=== PATIENT | female | born 1970 | race Caucasian/White ===

== ENCOUNTER 2025-03-07 08:40 | Outpatient (CLI) | payer BC, SELFPAY ==
--- NOTE | 2025-03-07 | EST_ITS ---
Patient Info Name: Noni Amezcua Age: 54 years : 1970 Gender: Female Ht: 68 in Wt: 140 lbs BSA: 1.74 m2 HR: 66 bpm BP: 134 / 89 mmHg Technical Quality: Excellent Exam Date: 03/07/2025 9:00 AM Patient Status: O Admit Date: 03/07/2025 Exam Type: CA stress echo Treadmill exercise stress echocardiogram is performed. 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 1. Negative Lonny exercise stress test for ischemic ST changes by ECG criteria. 2. 2. Reduced functional capacity, achieving 6.5 METs of workload. 3. 3. Appropriate HR response to exercise. 4. 4. Appropriate HR recovery at 1 minute post exercise. 5. 5. Negative stress echocardiogram for ischemia by wall motion analysis. 6. 6. Patient informed of the above results. Stress Echo Findings Left Ventricle Appropriate increase in LV endocardial thickening with systole. Appropriate augmentation of contractility with systole. No wall motion abnormality. Left Ventricle Normal LV systolic function, no wall motion abnormality. Protocol: Lonny Stress ECG Details Stage: REST Duration (min): 5 min : 55 sec Speed (mph): 0.0 Grade (%): 0 HR (bpm): 74 SBP (mmHg): 134 DBP (mmHg): 89 METS: --- Stage: RECOVERY Duration (min): 1 min : 56 sec Speed (mph): 0.0 Grade (%): 0 HR (bpm): 110 SBP (mmHg): 169 DBP (mmHg): 80 METS: --- Stage: STAGE 1 Duration (min): 2 min : 0 sec Speed (mph): 1.7 Grade (%): 10 HR (bpm): 134 SBP (mmHg): 134 DBP (mmHg): 89 METS: --- Stage: STAGE 1 Duration (min): 3 min : 0 sec Speed (mph): 1.7 Grade (%): 10 HR (bpm): 152 SBP (mmHg): 179 DBP (mmHg): 90 METS: --- Stage: RECOVERY Duration (min): 2 min : 56 sec Speed (mph): 0.0 Grade (%): 0 HR (bpm): 112 SBP (mmHg): 187 DBP (mmHg): 66 METS: --- Stage: RECOVERY Duration (min): 0 min : 56 sec Speed (mph): 0.0 Grade (%): 0 HR (bpm): 136 SBP (mmHg): 169 DBP (mmHg): 80 METS: --- Stage: RECOVERY Duration (min): 3 min : 56 sec Speed (mph): 0.0 Grade (%): 0 HR (bpm): 84 SBP (mmHg): 187 DBP (mmHg): 66 METS: --- Stage: RECOVERY Duration (min): 4 min : 27 sec Speed (mph): 0.0 Grade (%): 0 HR (bpm): 82 SBP (mmHg): 148 DBP (mmHg): 81 METS: --- Stage: STAGE 2 Duration (min): 1 min : 3 sec Speed (mph): 0.0 Grade (%): 0 HR (bpm): 163 SBP (mmHg): 179 DBP (mmHg): 90 METS: --- Stage: STAGE 1 Duration (min): 1 min : 0 sec Speed (mph): 1.7 Grade (%): 10 HR (bpm): 109 SBP (mmHg): 134 DBP (mmHg): 89 METS: --- Stage: REST Duration (min): 0 min : 22 sec Speed (mph): 0.0 Grade (%): 0 HR (bpm): 64 SBP (mmHg): --- DBP (mmHg): --- METS: --- Stage: STAGE 2 Duration (min): 1 min : 0 sec Speed (mph): 2.5 Grade (%): 12 HR (bpm): 162 SBP (mmHg): 179 DBP (mmHg): 90 METS: --- Rest HR: 74 bpm Peak HR: 163 bpm Rest Sys BP: 134 mmHg Peak Sys BP: 187 mmHg Max Pred HR: 166 bpm % Max Pred HR: 98 % Target HR: 141 bpm Max RPP: 30,481 bpm*mmHg Del Valle Score: -2 Termination Reason: Reached target heart rate or workload Cardiac Symptoms: Shortness of breath Max ST Seg Deviation: 1 mm Total Time: 4 min : 3 sec Rest Rivera BP: 89 mmHg Peak Rivera BP: 66 mmHg Angina Score: None Total METS: 6.5 Resting ECG Sinus rhythm. Stress ECG No ST changes. Arrhythmias None. Report Signatures Stress ECG Echo
--- OUTSIDE RECORDS SUMMARY | 2025-03-07 08:49 | XMS_ITS | Data Portability ---
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 All stable. Hx of breast cysts, and fam hx of breast cancer in her mother. Cologuard within 3 years UTD eye exam UTD Dental exam UTD pap smear 2023, last month. Not available 09/28/2023 18:28:56 09/27/2024 09/27/2024 Mammogram alternate with MRI 6 months later. All stable. Hx of breast cysts, and fam hx of breast cancer in her mother. Cologuard august 2024 clear. eye exam UTD Dental exam UTD pap smear august 2023. Not available 09/27/2024 16:58:59 Plan of Treatment Reminders Order Date Submit Date Provider Last Modified By Organization Details Last Modified Time Details Appointments ANY 15 2025 03:30P M MANUEL White Not available Not available Not available Lab TSH + free T4, serum 2024 025 [email or web address] [facility], [address], [place], [address], 09/27/2024 17:07:08 CMP, serum or plasma 2024 025 [id number] [facility], [address], [place], [address], 12/28/2024 03:09:17 CBC w/ auto diff 2024 025 [email or web address] [facility], [address], [place], [address], 09/27/2024 17:07:08 vitamin B12 + folate, serum or blood 2024 [email or web address], [address], [place], [address], 09/27/2024 17:07:08 lipid panel, serum 2024 025 [email or web address], [address], [place], [address], 09/27/2024 17:07:08 HbA1c (hemoglob in A1c), blood 2024 025 [email or web address], [address], [place], [address], 09/27/2024 17:07:08 TSH + free T4, serum 2023 024 HUNTER [facility], [address], [place], [address], 03/13/2024 09:06:20 CMP, serum or plasma 2023 024 HUNTER [facility], [address], [place], [address], 03/13/2024 09:06:21 CBC w/ auto diff 2023 024 HUNTER [facility], [address], [place], [address], 03/13/2024 09:06:24 vitamin B12 + folate, serum or blood 2023 024 THAYNE [facility], [address], [place], [address], 03/13/2024 09:06:22 lipid panel, serum 2023 024 THAYNE [facility], [address], [place], [address], 03/13/2024 09:06:19 HbA1c (hemoglob in A1c), blood 2023 024 THAYNE [facility], [address], [place], [address], 03/13/2024 09:06:23 Referral None recorded. Procedures None recorded. Surgeries None recorded. Imaging exercise stress echocardi ogram 2024 025 [facility]), [address], [place], [address], 03/02/2025 10:38:42 XR, chest, 2 view 2024 025 [facility], [address], [place], [address], 11/17/2024 15:20:20 Medication Orders amlodipin e 10 mg tablet 2024 025 [facility] #[id number], [address] [place], [address], 09/27/2024 17:07:14 amlodipin e 10 mg tablet 2024 025 [facility]/Ph[facility]acy #[id number], [address] [place], [address], 09/27/2024 16:43:00 Patient TargetsNo targets recorded. Patient InstructionsNo instructions recorded. Reason for Referral None Reported. Results Created Date Observation Date Name Description Value Unit Range Abnormal Flag Note LastModifiedBy Organization Detail LastModifiedTime 03/12/20 24 03/13/2024 LIPID PANEL W/ CHOL/ HDL RATIO cholesterol, total 214 mg/dL 100-19 9 above high normal Not Available [facility] ([facility]) [address] [place], [address], 03/13/2024 09:06:18 03/12/20 24 03/13/2024 LIPID PANEL W/ CHOL/ HDL RATIO triglyceride s 64 mg/dL 0-149 Not Available [facility] ([facility]) [address] [place], [address], 03/13/2024 09:06:18 03/12/20 24 03/13/2024 LIPID PANEL W/ CHOL/ HDL RATIO HDL cholesterol 86 mg/dL >39 Not Available [facility] ([facility]) [address] [place], [address], 03/13/2024 09:06:18 03/12/20 24 03/13/2024 LIPID PANEL W/ CHOL/ HDL RATIO VLDL cholesterol magali 11 mg/dL 5-40 Not Available [facility] ([facility]) [address] [place], [address], 03/13/2024 09:06:18 03/12/20 24 03/13/2024 LIPID PANEL W/ CHOL/ HDL RATIO LDL chol calc ([facility]) 117 mg/dL 0-99 above high normal Not Available [facility] ([facility]) [address] [place], [address], 03/13/2024 09:06:18 03/12/20 24 03/13/2024 LIPID PANEL W/ CHOL/ HDL RATIO T. chol/HDL ratio 2.5 ratio 0.0-4. 4 T. Chol/ HDL Ratio Men Women 1/2 Avg.R isk 3.4 3.3 Avg.R isk 5.0 4.4 2X Avg.R isk 9.6 7.1 3X Avg.R isk 23.4 11.0 Not Available [facility] ([facility]) [address] [place], [address], 03/13/2024 09:06:18 03/12/20 24 03/13/2024 TSH+F REE T4 TSH 1.400 uIU/m L 0.450- 4.500 Not Available [facility] ([facility]) [address] [facility] [place], [address], 03/13/2024 09:06:20 03/12/20 24 03/13/2024 TSH+F REE T4 T4,free(dire ct) 0.99 NG/dL 0.82-1 .77 Not Available [facility] ([facility]) [address] [place], [address], 03/13/2024 09:06:20 03/12/20 24 03/13/2024 COMP. METAB OLIC PANEL (14) glucose 86 mg/dL 70-99 Not Available [facility] ([facility]) [address] [place], [address], 03/13/2024 09:06:21 03/12/20 24 03/13/2024 COMP. METAB OLIC PANEL (14) BUN 18 mg/dL 6-24 Not Available [facility] ([facility]) [address] [place], [address], 03/13/2024 09:06:21 03/12/20 24 03/13/2024 COMP. METAB OLIC PANEL (14) creatinine 0.88 mg/dL 0.57-1 .00 Not Available [facility] ([facility]) [address] [place], [address], 03/13/2024 09:06:21 03/12/20 24 03/13/2024 COMP. METAB OLIC PANEL (14) eGFR 79 mL/mi n/1.7 3 >59 Not Available [facility] ([facility]) [address] [place], [address], 03/13/2024 09:06:21 03/12/20 24 03/13/2024 COMP. METAB OLIC PANEL (14) BUN/creatini ne ratio 12-06 Not Available [facility] ([facility]) [address] [place], [address], 03/13/2024 09:06:21 03/12/20 24 03/13/2024 COMP. METAB OLIC PANEL (14) sodium 141 mmol/ L 134-14 4 Not Available [facility] ([facility]) [address] [place], [address], 03/13/2024 09:06:21 03/12/20 24 03/13/2024 COMP. METAB OLIC PANEL (14) potassium 4.4 mmol/ L 3.5-5. 2 Not Available [facility] ([facility]) [address] [place], [address], 03/13/2024 09:06:21 03/12/20 24 03/13/2024 COMP. METAB OLIC PANEL (14) chloride 104 mmol/ L 96-106 Not Available [facility] ([facility]) [address] [place], [address], 03/13/2024 09:06:21 03/12/20 24 03/13/2024 COMP. METAB OLIC PANEL (14) carbon dioxide, total 27 mmol/ L - Not Available [facility] ([facility]) [address] [place], [address], 03/13/2024 09:06:21 03/12/20 24 03/13/2024 COMP. METAB OLIC PANEL (14) calcium 9.3 mg/dL 8.7-10 .2 Not Available [facility] ([facility]) [address] [place], [address], 03/13/2024 09:06:21 03/12/20 24 03/13/2024 COMP. METAB OLIC PANEL (14) protein, total 6.5 g/dL 6.0-8. 5 Not Available [facility] ([facility]) [address] [place], [address], 03/13/2024 09:06:21 03/12/20 24 03/13/2024 COMP. METAB OLIC PANEL (14) albumin 4.4 g/dL 3.8-4. 9 Not Available [facility] ([facility]) [address] [place], [address], 03/13/2024 09:06:21 03/12/20 24 03/13/2024 COMP. METAB OLIC PANEL (14) globulin, total 2.1 g/dL 1.5-4. 5 Not Available [facility] ([facility]) [address] [place], [address], 03/13/2024 09:06:21 03/12/20 24 03/13/2024 COMP. METAB OLIC PANEL (14) bilirubin, total 0.3 mg/dL 0.0-1. 2 Not Available [facility] ([facility]) [address] [place], [address], 03/13/2024 09:06:21 03/12/20 24 03/13/2024 COMP. METAB OLIC PANEL (14) alkaline phosphatase 54 IU/L 44-121 Not Available [facility] ([facility]) [address] [place], [address], 03/13/2024 09:06:21 03/12/20 24 03/13/2024 COMP. METAB OLIC PANEL (14) AST (SGOT) 21 IU/L 0-40 Not Available [facility] ([facility]) [address] [place], [address], 03/13/2024 09:06:21 03/12/20 24 03/13/2024 COMP. METAB OLIC PANEL (14) ALT (SGPT) 16 IU/L 0-32 Not Available [facility] ([facility]) [address] [facility], [place], [address], 03/13/2024 09:06:21 03/12/20 24 03/13/2024 VITAM IN B12 AND FOLAT E vitamin B12 525 pg/mL 232-12 45 Not Available [facility] ([facility]) [address] [facility], [place], [address], 03/13/2024 09:06:22 03/12/20 24 03/13/2024 VITAM IN B12 AND FOLAT E folate (folic acid), serum 17.5 NG/mL >3.0 A serum folat e gomez ntrat ion of less than 3.1 ng/mL is consi dered to repre sent clini magali defic iency . Not Available [facility] ([facility]) [address] [facility], [place], [address], 03/13/2024 09:06:22 03/12/20 24 03/13/2024 HEMOG LOBIN A1C hemoglobin A1C 5.3 % 4.8-5. 6 Predi abete s: 5.7 - 6.4 Diabe morales: >6.4 Glyce vikash contr ol for adult s with diabe morales: <7.0 Not Available [facility] ([facility]) [address] [place], [address], 03/13/2024 09:06:23 03/12/20 24 03/13/2024 CBC WITH DIFFE RENTI AL/PL ATELE T WBC 4.6 x10e3 /uL 3.4-10 .8 Not Available [facility] ([facility]) [address] [place], [address], 03/13/2024 09:06:24 03/12/20 24 03/13/2024 CBC WITH DIFFE RENTI AL/PL ATELE T RBC 4.35 x10e6 /uL 3.77-5 .28 Not Available [facility] ([facility]) [address] [place], [address], 03/13/2024 09:06:24 03/12/20 24 03/13/2024 CBC WITH DIFFE RENTI AL/PL ATELE T hemoglobin 13.7 g/dL 11.1-1 5.9 Not Available [facility] ([facility]) [address] [facility], [place], [address], 03/13/2024 09:06:24 03/12/20 24 03/13/2024 CBC WITH DIFFE RENTI AL/PL ATELE T hematocrit 41.9 % 34.0-4 6.6 Not Available [facility] ([facility]) [address] [place], [address], 03/13/2024 09:06:24 03/12/20 24 03/13/2024 CBC WITH DIFFE RENTI AL/PL ATELE T MCV 96 fL 79-97 Not Available [facility] ([facility]) [address] [place], [address], 03/13/2024 09:06:24 03/12/20 24 03/13/2024 CBC WITH DIFFE RENTI AL/PL ATELE T MCH 31.5 pg 26.6-3 3.0 Not Available [facility] ([facility]) [address] [place], [address], 03/13/2024 09:06:24 03/12/20 24 03/13/2024 CBC WITH DIFFE RENTI AL/PL ATELE T MCHC 32.7 g/dL 31.5-3 5.7 Not Available [facility] ([facility]) [address] [place], [address], 03/13/2024 09:06:24 03/12/20 24 03/13/2024 CBC WITH DIFFE RENTI AL/PL ATELE T RDW 12.2 % 11.7-1 5.4 Not Available [facility] ([facility]) [address] [place], [address], 03/13/2024 09:06:24 03/12/20 24 03/13/2024 CBC WITH DIFFE RENTI AL/PL ATELE T platelets 313 x10e3 /uL 150-45 0 Not Available [facility] ([facility]) [address] [facility], [place], [address], 03/13/2024 09:06:24 03/12/20 24 03/13/2024 CBC WITH DIFFE RENTI AL/PL ATELE T neutrophils 63 % notest ab. Not Available [facility] ([facility]) [address] [facility], [place], [address], 03/13/2024 09:06:24 03/12/20 24 03/13/2024 CBC WITH DIFFE RENTI AL/PL ATELE T lymphs 24 % notest ab. Not Available [facility] ([facility]) [address] [facility], [place], [address], 03/13/2024 09:06:24 03/12/20 24 03/13/2024 CBC WITH DIFFE RENTI AL/PL ATELE T monocytes 9 % notest ab. Not Available [facility] ([facility]) [address] [facility], [place], [address], 03/13/2024 09:06:24 03/12/20 24 03/13/2024 CBC WITH DIFFE RENTI AL/PL ATELE T eos 3 % notest ab. Not Available [facility] ([facility]) [address] [facility], [place], [address], 03/13/2024 09:06:24 03/12/20 24 03/13/2024 CBC WITH DIFFE RENTI AL/PL ATELE T basos 1 % notest ab. Not Available [facility] ([facility]) [address] [facility], [place], [address], 03/13/2024 09:06:24 03/12/20 24 03/13/2024 CBC WITH DIFFE RENTI AL/PL ATELE T neutrophils (absolute) 2.9 x10e3 /uL 1.4-7. 0 Not Available [facility] ([facility]) [address] [place], [address], 03/13/2024 09:06:24 03/12/20 24 03/13/2024 CBC WITH DIFFE RENTI AL/PL ATELE T lymphs (absolute) 1.1 x10e3 /uL 0.7-3. 1 Not Available [facility] ([facility]) [address] [facility], [place], [address], 03/13/2024 09:06:24 03/12/20 24 03/13/2024 CBC WITH DIFFE RENTI AL/PL ATELE T monocytes(ab solute) 0.4 x10e3 /uL 0.1-0. 9 Not Available [facility] ([facility]) [address] [place], [address], 03/13/2024 09:06:24 03/12/20 24 03/13/2024 CBC WITH DIFFE RENTI AL/PL ATELE T eos (absolute) 0.1 x10e3 /uL 0.0-0. 4 Not Available [facility] ([facility]) [address] [facility], [place], [address], 03/13/2024 09:06:24 03/12/20 24 03/13/2024 CBC WITH DIFFE RENTI AL/PL ATELE T baso (absolute) 0.1 x10e3 /uL 0.0-0. 2 Not Available [facility] ([facility]) [address] [place], [address], 03/13/2024 09:06:24 03/12/20 24 03/13/2024 CBC WITH DIFFE RENTI AL/PL ATELE T immature granulocytes 0 % notest ab. Not Available [facility] ([facility]) [address] [place], [address], 03/13/2024 09:06:24 03/12/20 24 03/13/2024 CBC WITH DIFFE RENTI AL/PL ATELE T immature grans (abs) 0.0 x10e3 /uL 0.0-0. 1 Not Available [facility] ([facility]) [address] [facility], [place], [address], 03/13/2024 09:06:24 08/30/19 25 08/29/2024 COLOG UARD cologuard result reportable NEGATI VE negati ve normal The Colog uard (TM) test was perfo rmed on this speci men. NEGAT BEE TEST RESUL T. A negat bee Colog uard resul t indic ates a low likel ihood that a color ectal cance r (CRC) or advan joleen adeno ma (melvin omato us polyp s with more advan joleen pre-m align ant featu res) is prese nt. The chanc e that a perso n with a negat bee Colog uard test has a color ectal cance r is less than 1 in 1500 (nega tive predi ctive value >99.9 %) or has an advan joleen adeno ma is less than 5.3% (nega tive predi ctive value 94.7% ). These data are based on a prosp ectiv e cross -sect ional study of 10,00 0 indiv idual s at [facility] risk for color ectal cance r who were scree laurita with both Colog uard and colon oscop y. (Judd Abdi. et al, N Engl J Med 2014; 370(1 4):12 86-12 97) The hansel l value (refe rence range ) for this assay is negat bee. COLOG UARD RE-SC SANTIAGO NG RECOM MENDA TION: Perio dic color ectal cance r scree hiram is an impor tant part of preve ntive healt hcare for asymp tomat ic indiv idual s at [facility] risk for color ectal cance r. Follo wing a negat bee Colog uard resul t, the Ameri can Cance r Socie ty and U.S. Multi -Soci ety Task Force scree hiram guide lines recom mend a Colog uard re-sc santiago grimaldo inter iris of 3 years . Refer ences : Karen can Cance r Socie ty Guide line for Color ectal Cance r Scree hiram: https ://margaret w.can cer.o rg/ca ncer/ colon -rect al-ca ncer/ detec tion- diagn osis- stagi ng/ac s-rec ommen datio ns.ht ml.; Elmer DK, Benjy jacob CR, Yanet SoaresK, Color ectal Cance r Scree hiram: Recom menda tions for Physi cians and Patie nts from the U.S. Multi -Soci ety Task Force on Color ectal Cance r Scree hiram , Christina stokesnttamiko rolog y 2017; 112:1 016-1 030. TEST DESCR IPTIO N: [place] site algor ithmi c guerrero sis of stool DNA-b ivett eaton with hemog lobin immun oassa y. Quant itati ve value s of indiv idual bioma rkers are not repor table and are not assoc iated with indiv idual bioma rker resul t refer ence range s. Colog uard is inten ded for color ectal cance r scree hiram of adult s of eithe r sex, 45 years or older , who are at [facility] for color ectal cance r (CRC) . Colog uard has been appro radha for use by the U.S. FDA. The perfo rmanc e of Colog uard was estab lishe d in a cross secti onal study of [facility] adult s aged 50-84 . Colog uard perfo rmanc e in patie nts ages 45 to 49 years was estim ated by rosie-crystal bailey guerrero sis of near- age group s. Colon oscop ies perfo rmed for a posit bee resul t may find as the most clini frances signi ficmarybel t lesio n: color ectal cance r [4.0% ], advan joleen adeno ma (incl uding sessi le tia helene polyp s great er than or equal to 1cm diame ter) [20%] or non- advan joleen adeno ma [31%] ; or no color ectal neopl javy [45%] . These estim ates are deriv ed from a prosp ectiv e cross -sect ional scree hiram study of ,00 0 indiv idual s at [facility] risk for color ectal cance r who were scree laurita with both Colog uard and colon oscop y. (Judd Mcmahon et al, N Engl J Med 2014; 370(1 4):12 86-12 97.) Colog uard may produ ce a false negat bee or false posit bee resul t (no color ectal cance r or preca ncero us polyp prese nt at colon oscop y follo w up). A negat bee Colog uard test resul t does not guara ntee the absen ce of CRC or advan joleen adeno ma (pre- cance r). The curre nt Colog uard scree hiram inter iris is every 3 years . (Amer ican Cance r Socie ty and U.S. Multi -Soci ety Task Force ). Colog uard perfo rmanc e data in a 0 patie nt pivot al study using colon oscop y as the refer ence metho d can be acces sed [facility] loc[facility]: www.e xactl abs.c om/re katie . Addit ional descr iptio n of the Colog uard test proce ss, warni ngs and preca ution s can be found at www.c janes amosd.c om. Not Available [facility] [employer] [address], [place], [address], 2024 04:04:28 Result Notes None recorded. Problems Name Problem SNOMED Code Status Onset Date Resolution Date Notes Provider Name and Address Organization Details Recorded Time Hypertensive disorder 35651825 Active [address] [facility] 17:50:31 Postmenopausal state 17275068 Active 2023 MANUEL White Attn: Earline rojas [facility], [place], [address], [place] - [facility] 4 08:24:47 Benign essential hypertension 9170774 Active 2023 MANUEL White Attn: Earline rojas,[address] [facility], [place], [address], [place] [facility] 4 08:24:49 Long-term drug therapy Active 2023 MANUEL White Attn: Earline g,[address] [facility], [place], [address], [place] [facility] 4 08:24:51 Body mass index 20-24 - normal 694824455 Active 2023 MANUEL White Attn: Earline g,[address] [facility], [place], [address], [place] [facility] 5 16:59:36 Problem Notes None recorded. Medical Equipment None Reported. Allergies Allergen ID Allergen Name Allergen Category Reaction Reaction Severity Criticality Documentation Date Start Date Code Code System Note Provider Name and Address Organization Details Recorded Time 544482 Compazine medicatio n swelling mild low 09/28/202391300 6 RxNorm Tongu e swell SANIA Lopez, [facility] 4 18:02:26 803706 Substance with sulfonami de structure and antibacte rial mechanism of action (substanc e) medicatio n rash mild low 09/28/2023 56387 8003 SNOMED SANIA Lopez, [facility] 4 18:02:41 675874 prochlorp erazine medicatio n other Not available low 03/01/20252017 8704 RxNorm Not Available hunter - External 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 2024 active Not Available Not Available Not Avai lable fluoxetine 20 mg tablet TAKE 1 TABLET BY MOUTH EVERY DAY 09/27 completed Not Available Not Available Not Available fluoxetine 20 mg capsule Take 1 capsule every day by oral route for 90 days. active Not Available Not Available No t Available Vitals Date Recorded Systolic And Diastolic Provider Name and Address Organization Details Last Updated DateTime 03/29/2024 128/80 mm[Hg] MANUEL White Attn: Accounting,[address] [place], [address], [facility] 03/29/2024 17:08:16 Date Recorded Body height Body mass index (BMI) Body weight Respiratory rate Oxygen saturation Heart rate Systolic And Diastolic Provider Name and Address Organization Details Last Updated DateTime 5 172.72 cm 20.7 kg/m2 32841.5 6 g 18 /min 99 % 77 /min 130/78 mm[Hg] Kamilah Cooper MA [facility] 16:34:18 Date Recorded Respiratory rate Systolic And Diastolic Provider Name and Address Organization Details Last Updated DateTime 09/28/2023 18 /min 112/80 mm[Hg] MANUEL White Attn: Accounting, [place], [address], [facility] 09/28/2023 18:34:25 Date Recorded Body weight Body mass index (BMI) Body height Heart rate Oxygen saturation Systolic And Diastolic Provider Name and Address Organization Details Last Updated DateTime 4 93891.4 5 g 21.4 kg/m2 172.72 cm 64 /min 98 % 122/70 mm[Hg] Alena Mckeon MA [facility] 4 18:06:01 Date Recorded Systolic And Diastolic Provider Name and Address Organization Details Last Updated DateTime 09/27/2024 128/80 mm[Hg] MANUEL White Attn: Accounting,[address] [place], [address], [facility] 09/27/2024 17:07:47 Date Recorded Body height Body mass index (BMI) Body weight Respiratory rate Oxygen saturation Heart rate Systolic And Diastolic Provider Name and Address Organization Details Last Updated DateTime 5 172.72 cm 20.2 kg/m2 70989.7 9 g 18 /min 98 % 58 /min 122/72 mm[Hg] Kamilah Cooper [place] - [facility] 16:45:31 Social History Question Answer Notes LastModified by Organizat ion Details LastModified Time Tobacco Smoking Status Never Smoker Alena SANIA Mckeon null, [place] - [facility] 09/28/2023 18:03:58 Do You Have An Advance Directive? No Information n ot available 09/28/2023 Are You Blind Or Do You Have Difficulty Seeing? No Information n ot available 09/28/2023 What Is Your Level Of Caffeine Consumption? Moderate Information not available 09/28/2023 In The 14 Days Before Symptom Onset, Have You Had Close Contact With A Laboratory-confirm ed COVID-19 While That Case Was Ill? No Information n ot available 09/28/2023 In The 14 Days Before Symptom Onset, Have You Had Close Contact With A Person Who Is Under Investigation For COVID-19 While That Person Was Ill? No [email or web address] Information not available 09/28/2023 Have You Been To An Area Known To Be High Risk For COVID-19? No [email or web address] Information not available 09/28/2023 Are You Deaf Or Do You Have Serious Difficulty Hearing? No Information not available 09/28/2023 What Type Of Diet Are You Following? REGULAR Information n ot available 09/28/2023 Are There Any Guns Present In Your Home? No Information not available 09/28/2023 What Was The Date Of Your Most Recent Tobacco Screening? 09/27/2024 [email or web address] Information not available 09/27/2024 What Is Your Relationship Status? Information not available 09/28/2023 Do You Use Your Seat Belt Or Car Seat Routinely? Yes Information not available 09/28/2023 Do You Have Smoke And Carbon Monoxide Detectors In Your Home? Yes Information not available 09/28/2023 Do You Use Sunscreen Routinely? Yes Information not available 09/28/2023 Has Tobacco Cessation Counseling Been Provided? No Information not available 09/28/2023 Sex: Female Functional Status Question Answer Note LastModified by Organizat ion Details LastModified Time Do you use any illicit or recreational drugs? No Information not available 09/28/2023 Do you or have you ever used any other forms of tobacco or nicotine? No Information not available 09/28/2023 What is your level of alcohol consumption? Occasional Information not available 09/28/2023 Are you currently employed? No Information not available 09/28/2023 Are you able to care for yourself independently? Yes Information not available 09/28/2023 What is your exercise level? None Information not available 09/28/2023 Mental Status Question Answer Note LastModified by Organization D etails LastModified Time Do you feel stressed (tense, restless, nervous, or anxious, or unable to sleep at night)? [id number] Information not available 09/28/2023 Family History Relationship Description Onset Age of this Age Resolved Age Notes LastModified by Organization Details LastModified Time Mother Malignant neoplasm of breast mebyma Not available 2023 18:03:09 Mother Cerebrovascu lar accident mebyma Not available 18:03:15 Mother Dementia mebyma Not available 0 09/28/2023 18:03:21 Mother Diabetes mellitus mebyma Not available 2023 18:03:28 Mother Hypertensive disorder mebyma Not available 2023 18:03:36 Mother Kidney disease mebyma Not available 2023 18:03:43 Father Hypertensive disorder mebyma Not available 2023 18:03:36 Medical History Condition Response High Blood Pressure Y Depression Y Gynecological History Statement/Question Response Menses Monthly N Obstetrics History GPAL:G 0 P 0 0 0 0 Immunizations Vaccine Type Date Status Note Provider Nam e and Address Organization Details Recorded Time COVID-19, mRNA, LNP-S, PF, 30 mcg/0.3 mL dose 11/17/2020 completed SAN[place], [place] - [facility] 03/29/2024 16:30:17 COVID-19, mRNA, LNP-S, PF, 30 mcg/0.3 mL dose 12/08/2020 completed SAN[place] [facility] 03/29/2024 16:30:17 tetanus toxoid, adsorbed 12/26/2013 completed Kamilah Cooper MA [facility] 03/29/2024 16:30:17 Past Encounters Encounter ID Performer Location Encounter Start Date Encounter Closed Date Diagnosis/Indication Diagnosis SNOMED-CT Code Diagnosis ICD10 Code Diagnosis IMO Codes Diagnosis Note [id number] Jayme Tony MD [facility] [employer] [address] [place] [address] [id number] 1 09/28/2023 17:24:40 09/28/2023 18:45:51 Adult health examination 455553806 Z00.00 Annual wellness exam completed Benign ess ential hypertension 6313089 I10 Stable on amlodipine 10 mg daily Long-term drug therapy 320315721 Z79.899 cmp, cbc and b12, folate labs are due in February Postmenopausal state 764 74779 Z78.0 Patient takes fluoxetine 20mg daily and is stable with gyne. Cholesterol screening 27 7538914 Z13.220 Fasting lipid panel is due next in February Diabetes m ellitus screening 332768729 Z13.1 A1c screening due in February Thyroid di sorder screening 239552021 Z13.29 Routine thyroid panel also ordered for February Body mass index 20-24 - normal 484533453 Z68.21 BMI is normal at 21.4 [id number] Jayme Tony MD [facility] [employer] [address] [place] [address] [id number] 1 03/29/2024 16:22:17 04/11/2024 14:57:24 Benign essential hypertension 4665776 I10 Stable on amlodipine 10 mg daily, refills given and wellness scheduled in 6 months Long-term drug therapy 260758337 Z79.899 All labs reviewed and up-to-date Body mass index 20-24 - normal 654059926 Z68.21 BMI is normal at 20.7 [id number] Jayme Tony MD [facility] [employer] [address] [place] [address] [id number] 09/27/2024 16:20:24 10/10/2024 14:57:42 Benign essential hypertension 6883997 I10 Stable on amlodipine 10 mg daily. Refill provided Body mass index 20-24 - normal 201416564 Z68.20 [id number] BMI is normal at 20.2 Adult heal th examination 889148510 Z00.00 [id number] Annual wellness exam completed Postmenopausal state 764 84283 Z78.0 Patient takes fluoxetine 20mg daily and is stable with gyne. Long-term drug therapy 298360898 Z79.899 cmp, cbc and b12, folate labs are due in February Cholesterol screening 27 5450476 Z13.220 Fasting lipid panel is due next in February Diabetes m ellitus screening 459904915 Z13.1 A1c screening due in February Thyroid di sorder screening 385334117 Z13.29 Routine thyroid panel also ordered for February Atypical chest pain 1025 20214 R07.89 [id number] With underlying hypertensi on. We will refer for an exercise stress echo to evaluate underlying atypical chest pain that as sporadic and at rest or with some mild activity. Atelectasis 23725390 J98 .11 [id number] Patient had some atelectasi s noted on chest x-ray another facility. We will check a repeat chest x-ray to evaluate Health Concerns Section Related Observation LastModified by Organization Detai ls LastModified Time None Recorded Concern Status LastModified by Organization Details LastModified Time None Recorded Advance Directives Directive N: Payers Insurance Date Sequence Insurance Name Policy Number Policy Gonzalez Covered Member ID Gonzalez Member ID Guarantor Name 10/14/2024 1 [facility] [id number] Alf Esme Amezcua [id number] Noni Amezcua Notes Date Note Type Note Provider Name and Address Organization Details Recorded Time 4 text/html HypertensionReported by PatientHPIFor duration, patient reportshas noted for years. For onset/timing, patient reportsbetter. For alleviating factors, patient reportsmedication.Well-co ntrolled on blood pressure medication for years. No complaints MANUEL White Attn: Accounting,[address], [place], [address], [facility] 10/14/2023 08:25:45 5 text/html HypertensionReported by PatientHPIFor duration, patient reportshas noted for years. For onset/timing, patient reportsbetter. For alleviating factors, patient reportsmedication.Well-co ntrolled on blood pressure medication for years. No complaints MANUEL White Attn: Accounting,[address], [place], [address], [facility] 04/16/2024 08:48:57 5 text/html HypertensionReported by PatientHPIFor duration, patient reportshas noted for years. For onset/timing, patient reportsbetter. For alleviating factors, patient reportsmedication.Well-co ntrolled on blood pressure medication for years. No complaints MANUEL White Attn: Accounting,[address] [facility], [place], [address], [facility] 10/13/2024 19:23:04 OBGyn Episode No OBEpisode recorded.
--- OUTSIDE RECORDS SUMMARY | 2025-03-07 08:49 | XMS_ITS | Clinical Summary ---
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 Gender Identity Not on file Sexual Orientation Not on file Plan of Treatment Health Maintenance Due Date Last Done Comments Hepatitis C Virus (HCV) Screening 1970 TdaP Immunization 1970 Hepatitis B Immunization (1 of 3 - 19+ 3-dose series) 1989 Pap Smear 09/03/1991 Cervical Cancer Screening (CCS) 2000 HPV/Cotest 2000 Cologuard 09/03/2015 Colonoscopy 09/03/2015 Colorectal Cancer Screening 09/03/2015 Immunochemical Fecal Occult Blood 09/03/2015 Pneumococcal Immunization (5 0+ years) (1 of 1 - PCV) 2020 Zoster Immunization (1 of 2) 2020 Influenza Immunization (#1) 2024 SARS-COV-2 Immunization ( season) 2024 Respiratory Syncytial Virus (RSV) Immunization (Adult) (1 - 1-dose 75+ series) 2045 Human Papillomavirus (HPV) Immunization Aged Out No longer eligible b ased on patient's age to complete this topic Meningococcal Immunization (ACWY) Aged Out No longer eligible based on patient's age to complete this topic Rotavirus Immunization Aged Out No lo nger eligible based on patient's age to complete this topic
--- OUTSIDE RECORDS SUMMARY | 2025-03-07 08:49 | XMS_ITS | Clinical Summary ---
Author Organization [facility] lin Address [address] [place] [address] Care Team Providers Care Mobile Security Architect Name Role Phone No, Pcp TECHNICAL MAINTENANCE SPECIALIST Primary Care Provider Unavailabl e Social History Tobacco Use Types Packs/Day Years Used Date Smoking Tobacco: Never Assessed Comments Unknown Sex and Gender Information Value Date Recorded Sex Assigned at Not on file Legal Sex Female 10:33 AM EST Gender Identity Not on file Sexual Orientation Not on file Plan of Treatment Not on file Medical Devices Not on file Care Teams Mobile Security Architect Relationship Specialty Start Date End Date No, Pcp, TECHNICAL MAINTENANCE SPECIALIST N/A Do not use PCP - General Family Medicine 03/25/20
--- OUTSIDE RECORDS SUMMARY | 2025-03-07 08:49 | XMS_ITS | Clinical Summary ---
Author Organization [facility] Address [address] [place] [phone] Care Team Providers Care Immigration Patrol Inspector Name Role Phone Samanta Elena MD Unavailable [phone] Esperanza Suarez Primary Care Pr ovider Allergies Active Allergy Reactions Criticality Noted Date Comments Prochlorperazine Other (See comments) Low 8 Sulfa (Sulfonamide Antibiotics) Other (See comments) Low 08/29/2017 Medications FLUoxetine (PROzac) 20 mg tablet Take 1 tablet (20 mg total) by mouth daily Active amLODIPine (NORVASC) 10 mg tablet Take 1 tablet (10 mg total) by mouth daily Active multivitamin-Ca- iron-minerals 18-0.4 mg tablet Take 1 tablet/chew tab by mouth daily Active Active Problems Problem Noted Date Diagnosed Date Mass of breast 09/19/2015 Immunizations Immunization Administration Dates Next Due Pfizer SARS-CoV-2 Monovalent Vaccination (12+ Yrs) PURPLE 08/14/2020 Tetanus toxoid, adsorbed 12/26/2013 Surgical History Surgery Date Site/Laterality Comments BREAST BIOPSY BREAST BIOPSY 11/10/2022 Left Medical History Medical History Date Comments Depression Family History Medical History Relation Name Comments Breast cancer Mother 55 Relation Name Status Comments Mother Social History Tobacco Use Types Packs/Day Years Used Date Smoking Tobacco: Former Cigarettes 1 8 Tobacco Cessation:Counseling Given: Not Answered Alcohol Use Standard Drinks/Week Comments Yes 0 (1 standard drink = 0.6 oz pur e alcohol) socially Comments Unknown Sex and Gender Information Value Date Recorded Sex Assigned at Not on file Legal Sex Female 6:09 AM HIGH PRESSURE FIRER Gender Identity Not on file Sexual Orientation Not on file Last Filed Vital Signs Vital Sign Reading Time Taken Comments Blood Pressure - - Pulse - - Temperature - - Respiratory Rate - - Oxygen Saturation - - Inhaled Oxygen Concentration - - Weight 60.9 kg (134 lb 3.2 oz) 04/27/2024 8:53 A M HIGH PRESSURE FIRER Height 172.7 cm (5' 8) 04/27/2024 8:53 AM HIGH PRESSURE FIRER Body Mass Index 20.41 04/27/2024 8:53 AM HIGH PRESSURE FIRER Plan of Treatment Health Maintenance Due Date Last Done Comments Cervical Cancer Screening 1970 Colon Cancer Screening-Colonoscopy 1970 Depression Screening 1970 Hepatitis C Screening 1970 Hepatitis B Screening 1988 Regular Well Visit/Exam 18-64 1988 DTaP/Tdap/Td Vaccine (1 - Tdap) 12/27/2013 12/26/2013 Zoster Vaccine (1 of 2) 2020 Covid-19 Vaccine (4 - season) 2024 12/08/2020, 11/17/2020, 08/14/2020 Influenza Vaccine (#1) 2024 Breast Cancer Screening-Mammogram 04/27/2025 04/27/2024, 04/27/2023, 04/26/2022, Additional history exists Pneumococcal vaccine <65 Aged Out No longer eligible based on patient's age to complete this topic Medical Devices Implanted Type Area Engineering Systems Analyst Device Identifier Shelf Expiration Date Model / Serial / Lot Bard Peripheral Vascular Ultraclip Bard 17ga 10cm 2 Trigger Permanent Ultrasound [id number] - [id number] Implanted:Qty: 1 on 11/10/2022 by Munira Gonzales MD at [facility] Left: Breast Bard Peripheral Vascular [id number] / / Bard Peripheral Vascular Marker Breast Ring Shape Radiopaque Nitinol Ultracor Twirl [id number] - [id number] Implanted:Qty: 1 on 11/10/2022 by Munira Gonzales MD at [facility] Left: Breast Bard Peripheral Vascular [id number] / / Procedures Procedure Name Priority Date/Time Associated Diagnosis Comments SCREENING MAMMOGRAM BILATERAL W CHET Schedule Routine, Read Routine (OP Routine) 04/27/2024 9:26 AM HIGH PRESSURE FIRER Family history of breast cancer from Last 3 Months or Most Recently Relevant to Health Maintenance Results * Screening Mammogram Bilateral W Chet (04/27/2024 9:26 AM HIGH PRESSURE FIRER) Anatomical Region Laterality Modality Breast Bilateral Mammography Narrative 04/27/2024 12:08 PM HIGH PRESSURE FIRER Mammogram Technique: Bilateral Digital Breast Tomosynthesis, Bilateral C-view 2D Screening mammogram. Views obtained: bilateral craniocaudal and bilateral mediolateral oblique. Computer Aided Detection was performed. Mammogram Findings: The present examination has been compared to prior imaging studies performed at [facility] on 04/26/2022, 10/31/2022 and 04/27/2023. The breasts are extremely dense, which lowers the sensitivity of mammography. There are multiple masses in both breasts. There is no suspicious abnormality in either breast. Impression: There is no mammographic evidence of malignancy. Annual screening mammography is recommended. Consider breast MRI for supplemental screening given the patient's extremely dense breast tissue. OVERALL FINAL ASSESSMENT: BI-RADS CATEGORY 2: Benign. Procedure Note Ramonita Barry MD - 04/27/2024 Mammogram Technique: Bilateral Digital Breast Tomosynthesis, Bilateral C-view 2D Screening mammogram. Views obtained: bilateral craniocaudal and bilateral mediolateral oblique. Computer Aided Detection was performed. Mammogram Findings: The present examination has been compared to prior imaging studies performed at [facility] on 04/26/2022, 10/31/2022 and 04/27/2023. The breasts are extremely dense, which lowers the sensitivity of mammography. There are multiple masses in both breasts. There is no suspicious abnormality in either breast. Impression: There is no mammographic evidence of malignancy. Annual screening mammography is recommended. Consider breast MRI for supplemental screening given the patient's extremely dense breasttissue. OVERALL FINAL ASSESSMENT: BI-RADS CATEGORY 2: Benign. Kathleen Rivera NP IMG MAMMO PROCEDURES Final Result from Last 3 Months or Most Recently Relevant to Health Maintenance Insurance [employer] [facility] H[facility]/PPO Address: [address] [address] [place] [address] [employer] [facility] Care Teams Immigration Patrol Inspector Relationship Specialty Start Date End Date Esperanza Suarez PA PCP - General 02/11/21 Samanta Elena MD Referring Physician Obstetrics and Gynecology 09/30/18
--- OUTSIDE RECORDS SUMMARY | 2025-03-07 08:49 | XMS_ITS | Data Portability ---
Author Organization [place] [employer], Main Office Address [address] [place] [address] Assessment Encounter Date Assessment Date Assessment LastModified by Organization Details LastModified Time 07/28/2022 07/28/2022 cologuard negative june 2021. Mammogram UTD eye and dental UTD WWE utd [email or web address] Not available 07/28/2022 17:14:47 Plan of Treatment Reminders Order Date Submit Date Provider Last Modified By Organization Details Last Modified Time Details Appointments None recorded. Lab TSH + free T4, serum 2022 023 YURY [facility], [address], [place], [address], 3 13:19:45 CMP, serum or plasma 2022 023 [email or web address] [facility], [address], [place], [address], 3 13:14:53 CBC w/ auto diff 2022 023 [email or web address] [facility], [address], [place], [address], 3 13:15:01 lipid panel, serum 2022 023 [email or web address] [facility], [address], [place], [address], 3 13:15:08 magnesium, serum or plasma 2022 023 [email or web address] [facility], [address], [place], [address], 3 13:15:24 HbA1c (hemoglobin A1c), blood 2022 023 [email or web address] [facility], [address], [place], [address], 3 13:15:16 Referral None recorded. Procedures None recorded. Surgeries None recorded. Imaging None recorded. Medication Orders amlodipine 10 mg tablet 2022 023 [facility] #[id number], [address] [place], [address], 3 09:08:05 amlodipine 10 mg tablet 2022 023 [facility] #[id number], [address] [place], [address], 3 17:18:26 Patient TargetsNo targets recorded. Patient InstructionsNo instructions recorded. Reason for Referral None Reported. Results Created Date Observation Date Name Description Value Unit Range Abnormal Flag Note LastModifiedBy Organization Detail LastModifiedTime 04/27/19 24 04/27/2023 MAMMO , scree hiram, digit al, bilat eral No observ ation record ed. [email or web address] [facility] [address] [place] [address], [address], 06/02/2023 11:31:45 Result Notes None recorded. Problems Name Problem SNOMED Code Status Onset Date Resolution Date Notes Provider Name and Address Organization Details Recorded Time Diabetes mellitus screening Active 2021 Not Available [facility] 3 21:30:10 Long-term drug therapy Active 2021 Not Available [facility] 3 21:30:11 Adult health examination Active 2021 Not Available [facility] 3 21:30:11 Cholesterol screening Active 2021 Not Available [facility] 3 21:30:11 Screening for malignant neoplasm of colon Active 2021 Not Available [facility] 3 21:30:11 Benign essential hypertension 6071679 Active 2021 Not Available [facility] 3 21:30:10 Cramp in lower limb 398407716 Active 2022 MANUEL White [address] [facility], [address], [place], [address] , [facility] 3 17:14:27 Acute urinary tract infection 209376114 Active 2023 MANUEL White [address] [facility], [address], [place], [address] , [facility] 4 11:39:12 Problem Notes None recorded. Procedures Surgical History Date Name Laterality Status Provider Name and Address Organization Details Recorded Time Reconstruction of nose completed Not Available [facility] 05/14/2022 21:29:14 Imaging Results None recorded. Procedure Notes None recorded. Medical Equipment None Reported. Allergies Allergen ID Allergen Name Allergen Category Reaction Reaction Severity Criticality Documentation Date Start Date Code Code System Note Provider Name and Address Organization Details Recorded Time 45338 Substance with sulfonami de structure and antibacte rial mechanism of action (substanc e) medicatio n Not available Not available Not available 05/14/2022 39644 8003 SNOMED Not Available [facility] 3 21:31:19 10688 Compazine medicatio n Not available Not available Not available 05/14/2022 01977 6 RxNorm Not Available [facility] 3 21:31:19 Medications Name Sig Start Date Stop Date Status Note LastModified by Organization Details LastModified Time Iron (ferrous sulfate) 325 mg (65 mg iron) tablet Take 1 tablet every day by oral route. 2020 active Not Available Not Available Not Avai lable amlodipine 5 mg tablet TAKE 1 TABLET BY MOUTH EVERY DAY active Not Available Not Available No t Available amlodipine 10 mg tablet Take 1 tablet every day by oral route. 2022 active Not Available Not Available Not Avai lable cephalexin 500 mg capsule TAKE 1 CAPSULE BY MOUTH EVERY 12 HOURS FOR 10 DAYS 01/28 completed Not Available Not Available Not Available ondansetron 4 mg disintegrat ing tablet 05/20 completed Not Available Not Available Not Available fluoxetine 20 mg capsule TAKE 1 CAPSULE BY MOUTH EVERY DAY FOR 90 DAYS active Not Available Not Available No t Available fluticasone propionate 50 mcg/actuati on nasal spray,suspe nsion [place] 1 spray every day by intranasa l route. 05/20 completed Not Available Not Available Not Available nitrofurant oin monohydrate /macrocryst als 100 mg capsule TAKE 1 CAPSULE BY MOUTH EVERY 12 HOURS active Not Available Not Available No t Available multivitami n otc, takes daily 2020 active Not Available Not Available Not Avai lable Vitals Date Recorded Systolic And Diastolic Systolic And Diastolic Provider Name and Address Organization Details Last Updated DateTime 07/28/2022 140/80 mm[Hg] 120/80 mm[Hg] MANUEL White [address] [facility], [facility] [address], [place], [address], [facility] 07/28/2022 17:17:30 Date Recorded Body height Body temperature Body mass index (BMI) Body weight Respiratory rate Oxygen saturation Heart rate Systolic And Diastolic Provider Name and Address Organization Details Last Updated DateTime 3 172.72 cm 97.6 [degF] 21.6 kg/m2 15884.1 2 g 16 /min 98 % 69 /min 138/80 mm[Hg] DELMIS An [facility] [employer] [facility] 3 16:58:53 Date Recorded Body height Systolic And Diastolic Systolic And Diastolic Provider Name and Address Organization Details Last Updated DateTime 12/02/2021 172.72 cm 160/90 mm[Hg] 151/94 mm[Hg] Not Available [facility] 05/14/2022 21:29:56 Date Recorded Body height Oxygen saturation Heart rate Respiratory rate Body temperature Systolic And Diastolic Provider Name and Address Organization Details Last Updated DateTime 2 172.72 cm 94 % 117 /min 16 /min 97.6 [degF] 160/92 mm[Hg] Not Available [facility] 3 21:29:56 Date Recorded Body mass index (BMI) Body height Oxygen saturation Heart rate Respiratory rate Body temperature Body weight Systolic And Diastolic Provider Name and Address Organization Details Last Updated DateTime 2 21.1 kg/m2 172.72 cm 98 % 76 /min 16 /min 97.8 [degF] 70445.3 4 g 138/90 mm[Hg] Not Available [facility] 3 21:29:56 Date Recorded Body height Body temperature Body mass index (BMI) Body weight Respiratory rate Oxygen saturation Heart rate Systolic And Diastolic Provider Name and Address Organization Details Last Updated DateTime 3 172.72 cm 97.6 [degF] 21 kg/m2 05669.7 5 g 16 /min 99 % 83 /min 120/80 mm[Hg] DELMIS An [facility] 3 08:48:57 Social History Question Answer Notes LastModified by Organizat ion Details LastModified Time Tobacco Smoking Status Former Smoker DELMIS An [facility], [facility] 01/28/2023 08:43:43 Do You Have An Advance Directive? No [id number] Information not available 05/14/2022 What Is Your Level Of Caffeine Consumption? Moderate [id number] Information not available 05/14/2022 In The 14 Days Before Symptom Onset, Have You Had Close Contact With A Laboratory-confirm ed COVID-19 While That Case Was Ill? No [email or web address] Information n ot available 01/28/2023 In The 14 Days Before Symptom Onset, Have You Had Close Contact With A Person Who Is Under Investigation For COVID-19 While That Person Was Ill? No [email or web address] Information not available 01/28/2023 What Type Of Diet Are You Following? REGULAR [id number] Information not available 05/14/2022 Have There Been Any Changes To Your Family Or Social Situation? No Information no t available 01/28/2023 When Did You Quit Smoking? 16+yearssince lastcigarroel [email or web address] Information not available 01/28/2023 Do You Use Insect Repellent Routinely? No [email or web address] Information not available 01/28/2023 Do You Have A Medical Power Of User Experience Team Lead? No [email or web address] Information not available 01/28/2023 What Is Your Relationship Status? [id number] Information not available 05/14/2022 Do You Use Your Seat Belt Or Car Seat Routinely? Yes [email or web address] Information not available 01/28/2023 Do You Have Smoke And Carbon Monoxide Detectors In Your Home? Yes [email or web address] Information not available 01/28/2023 At What Age Did You Start Smoking Tobacco? 16 Information not available 01/28/2023 Do You Use Sunscreen Routinely? Yes [email or web address] Information not available 01/28/2023 Have You Recently Traveled Abroad? No [email or web address] Information not available 01/28/2023 Do You Have Any Dietary Restrictions? No [email or web address] Information not available 01/28/2023 Sex: Female Functional Status Question Answer Note LastModified by [employer] ion Details LastModified Time Do you use any illicit or recreational drugs? No [email or web address] Information not available 01/28/2023 Do you or have you ever used any other forms of tobacco or nicotine? No [email or web address] Information not available 01/28/2023 What is your level of alcohol consumption? Moderate [id number] Information not available 05/14/2022 What is your exercise level? Occasional [id number] Information not available 05/14/2022 Mental Status None recorded. Family History Relationship Description Onset Age of this Age Resolved Age Notes LastModified by Organization Details LastModified Time Mother Type 2 diabetes mellitus [email or web address] Not available 07/28 16:54:56 Mother Family history of stroke [email or web address] Not available 07/28 16:54:56 Mother Kidney disease [id number] Not available 05/14/2022 21:29:15 Mother Hypertensive disorder [id number] Not available 05/14/2022 21:29:15 Father Hypertensive disorder [id number] Not available 05/14/2022 21:29:16 Father Heart disease [id number] Not available 05/14/2022 21:29:16 Medical History Condition Response HEADACHES/MIGRAINES Y DEPRESSION (INCLUDING POST ) Y BACK / NECK PROBLEMS Y Gynecological History Statement/Question Response Menses Monthly Y How many live births 2 Date of Last Pap 09/14/2019 Date of Last Mammogram 09/14/2019 Current Control Method Partner Vas ectomy Sexually Active? Y Obstetrics History GPAL:G 0 P 0 0 0 0 Past Encounters Encounter ID Performer Location Encounter Start Date Encounter Closed Date Diagnosis/Indication Diagnosis SNOMED-CT Code Diagnosis ICD10 Code Diagnosis IMO Codes Diagnosis Note [id number] MANUEL White [facility] [address] [place] [address] 05/21/2021 00:00:00 06/13/2021 16:58:26 [id number] MANUEL White [facility] [address] [place] [address] 12/02/2021 00:00:00 12/03/2021 17:54:12 [id number] MANUEL White [facility] [address] [facility] [place] [address] 12/13/2021 00:00:00 12/13/2021 17:13:52 [id number] MANUEL White [facility] [address] [facility] [place] [address] 01/27/2022 00:00:00 02/12/2022 18:37:10 [id number] MANUEL White [facility] [address] [facility] [place] [address] 07/28/2022 16:54:43 07/28/2022 17:19:47 Adult health examination 585282364 Z00.00 well exam completed Cholesterol screening 27 9312298 Z13.220 fasting lipids due Diabetes m ellitus screening 218779874 Z13.1 screening for diabetes Thyroid di sorder screening 953080583 Z13.29 TFTs due Long-term drug therapy 929643213 Z79.899 cbc and cmp due Cramp in lower limb 4499 99215 R25.2 screening magnesium Benign ess ential hypertension 3897037 I10 refill amlodipine 10mg daily [id number] MANUEL White [facility] [address] [place] [address] 01/28/2023 08:43:33 01/28/2023 09:08:03 Benign essential hypertension 8871154 I10 refill amlodipine 10mg daily Long-term drug therapy 322003644 Z79.899 labs from august this year were all in great ranges. Health Concerns Section Related Observation LastModified by Organization Detai ls LastModified Time None Recorded Concern Status LastModified by Organization Details LastModified Time None Recorded Advance Directives Directive N: Payers Insurance Date Sequence Insurance Name Policy Number Policy Gonzalez Covered Member ID Gonzalez Member ID Guarantor Name 02/09/2023 1 [facility] [id number] Noni A Seven [id number] Noni Lucian Seven Notes Date Note Type Note Provider Name and Address Organization Details Recorded Time 3 text/html HypertensionReported by PatientHPIFor duration, patient reportshas noted for years. For onset/timing, patient reportsbetter. For alleviating factors, patient reportsmedication. For associated symptoms, patient reportsno shortness of breath,no fatigue,no palpitations,no decline in exercise capacity, andno snoring. wellness MANUEL White [address], [place], [address], [facility] 08/13/2022 23:35:08 3 text/html HypertensionReported by PatientHPIFor duration, patient reportshas noted for years. For onset/timing, patient reportsbetter. For alleviating factors, patient reportsmedication. For associated symptoms, patient reportsno shortness of breath,no fatigue,no palpitations,no decline in exercise capacity, andno snoring. MANUEL White [address], [place], [address], [facility] 02/07/2023 16:30:17 OBGyn Episode No OBEpisode recorded.
== END 2025-03-07 08:41 | disposition home or self-care (01) ==
PROVIDERS: PCP Physician Assistant; Visit Provider Physician Assistant
DX: R07.89 Other chest pain (principal)
CPT/HCPCS: 93351